=== PATIENT | male | born 1935 | race Caucasian/White ===

== ENCOUNTER → 2024-04-12 09:20 | Outpatient (CLI) | payer MEDICARE, OTHER, SELFPAY ==
--- NOTE | 2024-04-12 09:21 | DI.ECHO.S_ITS ---
[place] +---------+ [facility] : : [address] : : [place] : : [id number] : : Phone: [phone] Echocardiogram Report + + :Name: GIL IBRAHIM Study Date: 04/12/2024 Height: 74 in : :[facility] ReadingLocation: Weight: 220 lb : : Gender: Male BSA: 2.3 m2 : :: 1935 Age: 88 yrs BP: 152/78 mmHg: :Reason For Study: CORONARY ARTERY DISEASE : :Ordering Physician: ARLYN RHOADES Performed By: Nancy Lacy : :Referring: ARLYN RHOADES : + + Interpretation Summary 1. The left ventricular contractility is normal. Estimated ejection fraction is greater than 60% with no segmental wall motion abnormalities. No LVH. Unable to comment on diastolic function. 2. The right ventricle was not well-visualized. In limited views, the contractility appears to be preserved. 3. There is severe biatrial enlargement noted. The right ventricle also appears to be dilated. The left ventricular cavity appears to be of normal size. 4. 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 5. Moderate aortic insufficiency noted. 6. Moderate eccentric tricuspid regurgitation with estimated pulmonary systolic artery pressures of 54 mmHg. 7. Mild pulmonic insufficiency. 8. No obvious intracardiac shunts. 9. No obvious intracardiac masses nor thrombi. 10. A small, nonhemodynamically significant mostly posterior pericardial effusion noted. 11. Low right-sided filling pressures. Conclusion: Normal biventricular systolic function with mild to moderate valvular insufficiencies. Severe pulmonary hypertension noted. Procedure: A two-dimensional transthoracic echocardiogram with color flow and Doppler was performed. The study quality was technically adequate. There is no prior echocardiogram noted for this patient. The patient was in atrial flutter with heart rates between 38-44 bpm during the exam. Left Ventricle: The left ventricle is normal in size and wall thickness. The ejection fraction is estimated to be 60-65%. Right Ventricle: The right ventricle is mild to moderately dilated. The right ventricular systolic function is normal. Atria: The left atrium is moderately dilated. The right atrium is severely dilated. There is no Doppler evidence for an interatrial shunt. Mitral Valve: There is a flat closure plane of the the mitral valve leaflets. The mitral valve leaflets appear moderately thickened, but open well. There is mild to moderate mitral regurgitation. The mitral regurgitant jet is eccentrically directed. Aortic Valve: The aortic valve is trileaflet. The aortic valve is mildly calcified. There is no aortic valve stenosis. There is moderate aortic regurgitation. Tricuspid Valve: The tricuspid valve leaflets are thickened and/or calcified, but open well. There is moderate tricuspid regurgitation. The tricuspid regurgitant jet is eccentrically directed. Pulmonic Valve: The pulmonic valve leaflets are thin and pliable; valve motion is normal. There is mild pulmonic regurgitation. Great Vessels: The aortic root is normal size. The ascending aorta is normal in size. The IVC is of normal diameter and collapses greater than 50% with a sniff. This suggests a low right atrial pressure of 3 mm Hg. Pericardium/ Pleura There is a trivial to small pericardial effusion noted. There is no pleural effusion. MMode/2D Measurements & Calculations LVIDd: 5.4 cm LVOT diam: 2.0 cm LVIDs: 2.9 cm Ao root diam: 3.8 cm FS: 46.2 % asc Aorta Diam: 3.7 cm EPSS: 0.31 cm Ao Arch Diam (Prox Trans): 3.2 cm IVSd: 0.95 cm LVPWd: 0.69 cm LV thomas. diameter/BSA (cm/m^2): 2.4 LV sys. diameter/BSA (cm/m^2): 1.3 LA A2 area: 24.0 cm2 RA long axis: 5.9 cm LA A4 area: 30.6 cm2 RA area: 29.2 cm2 LA length (vol): 6.6 cm RA vol: 122.1 ml LA vol: 94.4 ml RA : 54.0 ml/m2 LA vol index: 41.7 ml/m2 IVC diam: 1.6 cm RVD1 (basal): 4.7 cm TAPSE: 1.7 cm Doppler Measurements & Calculations Ao V2 max: 120.7 cm/sec LVOT Max Justyn: 73.7 cm/sec Ao V2 mean: 76.5 cm/sec LV V1 max P.2 mmHg Ao max P.8 mmHg LV V1 VTI: 19.7 cm Ao mean P.8 mmHg LAURA(I,D): 2.2 cm2 Ao V2 VTI: 27.9 cm LAURA(V,D): 1.9 cm2 sev ratio: 0.70 LAURA indexed to BSA (cm^2/m^2): 0.99 AI P1/2t: 1040 msec AI dec slope: 110.2 cm/sec2 MV E max justyn: 123.1 cm/sec TR max justyn: 367.7 cm/sec MV A max justyn: 43.0 cm/sec TR max P.1 mmHg MV E/A: 2.9 PA V2 max: 70.6 cm/sec Med Peak E' Justyn: 4.7 cm/sec PA V2 mean: 52.9 cm/sec E/E' med: 26.1 PA mean P.2 mmHg Lat Peak E' Justyn: 7.3 cm/sec PA pr(Accel): 37.9 mmHg E/E' lat: 16.8 E/e' average: 21.5 MV dec time: 0.16 sec SV(LVOT): 62.3 ml Reading Physician:
== END ==
PROVIDERS: PCP Nurse Practitioner Family; Referring Provider Internal Medicine; Visit Provider Internal Medicine
DX: I08.3 Combined rheumatic disorders of mitral, aortic and tricuspid valves (principal); I25.10 Atherosclerotic heart disease of native coronary artery without angina pectoris
CPT/HCPCS: 93306